=== PATIENT | female | born 2005 | race Caucasian/White ===

== ENCOUNTER 2024-07-31 09:11 | Emergency (ER) | payer BC ==
[2024-07-31 09:30] LABS: APPEARANCE,URINE CLEAR; BILIRUBIN,URINE NEGATIVE (NEGATIVE); COLOR,URINE YELLOW; GLUCOSE,URINE NEGATIVE (NEGATIVE); KETONES,URINE NEGATIVE (NEGATIVE); LEUKOCYTE ESTERASE,URINE SMALL (NEGATIVE); NITRITE,URINE POSITIVE (NEGATIVE); OCCULT BLOOD,URINE MODERATE (NEGATIVE); PROTEIN,URINE 100 mg/dL (NEGATIVE)
[2024-07-31 09:39] LABS: BACTERIA,URINE FEW (NEGATIVE); EPITHELIAL CELLS,URINE FEW (NONE-FEW); MUCUS,URINE LIGHT (NONE-MOD)
== END 2024-07-31 10:12 | disposition home or self-care (01) ==
LOC: MW.ED 09:11
DX: N39.0 Urinary tract infection, site not specified (principal); Z75.8 Other problems related to medical facilities and other health care
CPT/HCPCS: 81001; 81025; 99283; 99284

== ENCOUNTER 2024-10-27 12:32 | Emergency (ER) | payer BC ==
[2024-10-27 13:55] LABS: BASOPHILS ABSOLUTE AUTO 0.08 K/uL (0.00-0.20); BASOPHILS PERCENT AUTO 1.1 % (0.0-1.0); EOSINOPHILS ABSOLUTE AUTO 0.09 K/uL (0.00-0.45); EOSINOPHILS PERCENT AUTO 1.2 % (0.0-6.0); HEMATOCRIT 40.9 % (37.0-47.0); HEMOGLOBIN 14.4 g/dL (12.0-16.0); IMMATURE GRAN ABSOLUTE AUTO 0.02 K/uL (0.00-0.05); IMMATURE GRAN PERCENT AUTO 0.3 % (0.0-0.4); LYMPHOCYTES ABSOLUTE AUTO 2.87 K/uL (1.00-4.80); LYMPHOCYTES PERCENT AUTO 37.7 % (24.0-44.0); MEAN CORPUSCULAR HGB CONC 35.2 g/dL (32.0-36.0); MEAN CORPUSCULAR VOLUME 82.3 fL (83.0-99.0); MONOCYTES ABSOLUTE AUTO 0.68 K/uL (0.00-0.80); MONOCYTES PERCENT AUTO 8.9 % (0.0-8.0); NEUTROPHILS ABSOLUTE AUTO 3.87 K/uL (1.80-7.70); NEUTROPHILS PERCENT AUTO 50.8 % (41.0-71.0); PLATELET COUNT,PLT 271 K/uL (150-400); RED BLOOD CELL COUNT 4.97 M/uL (4.10-5.30); WHITE BLOOD CELL COUNT,WBC 7.61 K/uL (3.9-11.3)
[2024-10-27 14:37] LABS: APPEARANCE,URINE HAZY; BILIRUBIN,URINE NEGATIVE (NEGATIVE); COLOR,URINE YELLOW; GLUCOSE,URINE NEGATIVE (NEGATIVE); KETONES,URINE NEGATIVE (NEGATIVE); LEUKOCYTE ESTERASE,URINE SMALL (NEGATIVE); NITRITE,URINE NEGATIVE (NEGATIVE); OCCULT BLOOD,URINE TRACE-INTACT (NEGATIVE); PROTEIN,URINE NEGATIVE (NEGATIVE); UROBILINOGEN,URINE 0.2 EU/dL (<2.0)
[2024-10-27 14:38] LABS: BACTERIA,URINE 1+ (NEGATIVE); EPITHELIAL CELLS,URINE MANY (NONE-FEW); MUCUS,URINE LIGHT (NONE-MOD)
[2024-10-27 14:42] LABS: A/G RATIO 1.1 (0.9-1.6); ALBUMIN 3.7 g/dL (3.4-5.0); BILIRUBIN TOTAL 0.5 mg/dL (0.2-1.0); CARBON DIOXIDE,CO2 22.8 mmol/L (21.0-32.0); CREATININE 0.7 mg/dL (0.6-1.0); EST CRCL DRUG DOSING (CG) 105.16 mL/min; POTASSIUM,K 4.5 mmol/L (3.5-5.1); PROTEIN TOTAL,TP 7.2 g/dL (6.4-8.2)
== END 2024-10-27 16:55 | disposition home or self-care (01) ==
LOC: MW.ED 12:32
DX: O20.0 Threatened abortion (principal); O23.41 Unspecified infection of urinary tract in pregnancy, first trimester; N39.0 Urinary tract infection, site not specified; Z3A.01 Less than 8 weeks gestation of pregnancy; Z75.8 Other problems related to medical facilities and other health care
CPT/HCPCS: 36415; 76817; 76817-26; 80053; 81001; 84702; 85025; 86900; 86901; 87086; 99283; 99284

== ENCOUNTER 2024-10-31 11:27 | Emergency (ER) | payer BC | END 2024-10-31 14:22 | disposition home or self-care (01) | LOC: MW.ED 11:27 | DX: O20.0 Threatened abortion (principal); Z3A.01 Less than 8 weeks gestation of pregnancy | CPT/HCPCS: 36415; 84702; 99284 ==

== ENCOUNTER 2025-06-15 05:10 | Observation (INO) | payer BC ==
[2025-06-15] MEDS ORDERED: Carboprost Tromethamine 250 MCG/1 mL Vial IM PRN (06:09)
[2025-06-15] MEDS ORDERED: Sodium Chloride 0.9% 2.5 ML Syringe FLUSH PRN (06:09)
[2025-06-15] MEDS ORDERED: Butorphanol 1 MG/ML SDV IVPUSH PRN (06:09)
[2025-06-15] MEDS ORDERED: Water For Irrigation,Sterile 1,000 ML Container IRR PRN (06:09)
[2025-06-15] MEDS ORDERED: Sodium Chloride 0.9% 10 ML Syringe FLUSH PRN (06:09)
[2025-06-15] MEDS ORDERED: Ondansetron 4 MG/2 ML SDV IVPUSH PRN (06:09)
[2025-06-15 07:03] LABS: MEAN PLATELET VOLUME 10.4 fL (9.4-12.3); NRBC ABSOLUTE 0.00 K/uL (0.00-0.02); NRBC PERCENT 0.0 /100WBC (0.0-0.2); PLATELET COUNT,PLT 215 K/uL (150-400); RED BLOOD CELL COUNT 4.29 M/uL (4.10-5.30); WHITE BLOOD CELL COUNT,WBC 15.87 K/uL (3.9-11.3)
[2025-06-15] MEDS ORDERED: ePHEDrine 50 MG/ML SDV IVPUSH PRN (07:27)
[2025-06-15] MEDS ORDERED: dexmedeTOMIDine HCl 200 MCG/2 ML SDV EPIDUR SCH (07:30)
[2025-06-15] MEDS: Lactated Ringers 1,000 ML IV SCH (11:48)
[2025-06-15] MEDS: Ropivacaine HCl/PF 400 MG in Premix Bag 1 BAG EPIDUR SCH (12:11)
[2025-06-15] MEDS: Oxytocin/0.9 % Sodium Chloride 30 UNIT/500 ML BAG IV SCH (18:44)
[2025-06-15] MEDS ORDERED: Lanolin 100% Cream 7 GM Tube TOP PRN (19:28)
[2025-06-16] MEDS: Benzocaine/Menthol 20%-0.5% Spray 78 GM Cannister TOP PRN (00:51)
[2025-06-16] MEDS: Witch Hazel Medicated Pads 40/Jar TOP PRN (00:51)
== END 2025-06-16 22:55 | disposition home or self-care (01) ==
LOC: MW.OBCHECK 05:10 → MW.OB 05:11 → MW.OBCHECK 06:21 → OBSVTOIN 06:23 → INTOOBSV 06:23 → MW.OB 06:23
PROVIDERS: ADMIT Obstetrics & Gynecology; ATTEND Obstetrics & Gynecology
PROC: 10E0XZZ Delivery of Products of Conception, External Approach (ICD-10-PCS; principal; 2025-06-15)
PROC: 3E0R3BZ Introduction of Anesthetic Agent into Spinal Canal, Percutaneous Approach (ICD-10-PCS; 2025-06-15)
PROC: 0KQM0ZZ Repair Perineum Muscle, Open Approach (ICD-10-PCS; 2025-06-15)
DX: O80 Encounter for full-term uncomplicated delivery (principal); O70.1 Second degree perineal laceration during delivery; A63.0 Anogenital (venereal) warts; Z79.899 Other long term (current) drug therapy
CPT/HCPCS: 36415; 51702; 59025; 59409; 85014; 85018; 85027; 86592; 86850; 86900; 86901; A9270; J2590; J2795; J7120; 01967